=== PATIENT | male | born 1940 | race Caucasian/White ===

== ENCOUNTER → 2016-10-20 | Outpatient (CLI) | payer OTHER, BC ==
[~2016-10-20] VITALS: Ht 177.8 cm; Wt 83.9 kg
[~2016-10-20] MED LIST: ASPIR-LOW81 MG PO; ESCITALOPRAM OX10 MG PO; LISINOPRIL10 MG PO; LOVENOX40 MG/0.4 SC; METOPROLOL SUC100 MG PO; METOPROLOL SUCC50 MG PO; PLAVIX75 MG PO; PRAVASTATIN SOD40 MG PO; SENNA PLUS TAB1 EACH PO; TOPROL XL100 MG PO; TOPROL XL200 MG PO; ZESTORETIC 20-1 EAC1 PO
== END | disposition home or self-care (01) ==
LOC: AMB 07:52
PROC: 0D968ZX Drainage of Stomach, Via Natural or Artificial Opening Endoscopic, Diagnostic (ICD-10-PCS; principal; 2016-10-20)
PROC: BD42ZZZ Ultrasonography of Stomach (ICD-10-PCS; principal; 2016-10-20)
DX: C16.9 Malignant neoplasm of stomach, unspecified (principal); I10 Essential (primary) hypertension; Z86.73 Personal history of transient ischemic attack (TIA), and cerebral infarction without residual deficits; Z83.3 Family history of diabetes mellitus; Z82.49 Family history of ischemic heart disease and other diseases of the circulatory system; Z84.1 Family history of disorders of kidney and ureter; Z79.02 Long term (current) use of antithrombotics/antiplatelets
CPT/HCPCS: 88173; 88305; C1726; J3010

== ENCOUNTER → 2016-11-03 | Outpatient (CLI) | payer MEDICARE, BC | END | disposition home or self-care (01) | LOC: CDC 14:00 | DX: K31.89 Other diseases of stomach and duodenum (principal) | CPT/HCPCS: 93000; 99281; 99285 ==

== ENCOUNTER 2016-11-09 21:31 | Inpatient (IN) | payer OTHER, BC ==
[~2016-11-09] VITALS: Ht 177.8 cm; Wt 89.0 kg
[~2016-11-09 21:31] MED LIST changes: +LEXAPRO10 MG PO; +PRAVACHOL40 MG PO; +ZESTRIL10 MG PO
[2016-11-10 06:26] VITALS: BP 156/78
[2016-11-10 11:30] VITALS: BP 135/69
[2016-11-10 16:00] VITALS: BP 152/73
[2016-11-10 19:06] VITALS: BP 133/64
[2016-11-10 22:12] VITALS: BP 118/61
[2016-11-11 03:08] VITALS: BP 110/56
[2016-11-11 05:35] LABS: HEMATOCRIT 33.3 % (38.0-50.0); MCH 31.5 PG (29.0-34.0); MCHC 33.6 G/DL (30.0-36.0); MCV 93.5 FL (86-99); MEAN PLAT.VOLUME 9.8 uM^3 (9.0-12.4); PLATELET COUNT 159 K/uL (156-360); RBC DIS.WIDTH-CV 12.8 % (11.8-14.6); RBC DIS.WIDTH-SD 43.9 % (39-53); RED BLOOD COUNT 3.56 M/uL (4.00-5.50); WHITE BLOOD COUNT 12.8 K/uL (4.1-10.2)
[2016-11-11 06:13] LABS: ANION GAP 7 MEQ/L (2-14); CHLORIDE 103 MEQ/L (99-109); GFR ESTIMATE (CALCULATED) 57 mL/min/; GLUCOSE 144 mg/dL (70-99); POTASSIUM 4.5 MEQ/L (3.7-5.4); SAMPLE HEMOLYSIS CHECK 0; SAMPLE ICTERIC CHECK 0; SAMPLE LIPEMIA CHECK 0; SODIUM 137 MEQ/L (136-147); UREA NITROGEN (BUN) 23 mg/dL (9-23)
[2016-11-11 08:40] VITALS: BP 108/57
[2016-11-11 15:50] VITALS: BP 124/61
[2016-11-11 19:25] VITALS: BP 100/59
[2016-11-12 04:27] VITALS: BP 149/70
[2016-11-12 07:15] VITALS: BP 144/70
[2016-11-12 08:58] LABS: HEMATOCRIT 30.9 % (38.0-50.0); MCH 30.8 PG (29.0-34.0); MCHC 32.7 G/DL (30.0-36.0); MCV 94.2 FL (86-99); MEAN PLAT.VOLUME 10.1 uM^3 (9.0-12.4); PLATELET COUNT 113 K/uL (156-360); RBC DIS.WIDTH-CV 12.9 % (11.8-14.6); RBC DIS.WIDTH-SD 44.5 % (39-53); RED BLOOD COUNT 3.28 M/uL (4.00-5.50); WHITE BLOOD COUNT 10.2 K/uL (4.1-10.2)
[2016-11-12 09:34] LABS: ALKALINE PHOSPHATASE 45 IU/L (3-129); ANION GAP 4 MEQ/L (2-14); CHLORIDE 104 MEQ/L (99-109); GFR ESTIMATE (CALCULATED) > 59 mL/min/; GLUCOSE 135 mg/dL (70-99); POTASSIUM 4.3 MEQ/L (3.7-5.4); SAMPLE HEMOLYSIS CHECK 0; SAMPLE ICTERIC CHECK 0; SAMPLE LIPEMIA CHECK 0; SODIUM 138 MEQ/L (136-147); TOTAL BILIRUBIN 0.6 MG/DL (0.0-1.0); UREA NITROGEN (BUN) 22 mg/dL (9-23)
[2016-11-12 11:17] VITALS: BP 145/72
[2016-11-12 15:25] VITALS: BP 151/70
[2016-11-12 21:46] VITALS: BP 145/75
[2016-11-13] VITALS (7 sets, daily range): BP systolic 142–171; BP diastolic 71–88
[2016-11-14 04:16] VITALS: BP 158/72
[2016-11-14 07:50] VITALS: BP 188/86
[2016-11-14 10:45] LABS: EOSINOPHIL COUNT 0.2 K/uL (0-0.3); HEMATOCRIT 31.2 % (38.0-50.0); IMMATURE GRANULOCYTE (%) 0.4 % (0.0-0.7); INSTRUMENT ABS NEUTROPHIL CT 5.1 K/uL; LYMPHOCYTE COUNT 1.2 K/uL (1.0-2.8); MCV 91.2 FL (86-99); MEAN PLAT.VOLUME 10.1 uM^3 (9.0-12.4); MONOCYTE (%) 13.8 % (3-12); MONOCYTE COUNT 1.1 K/uL (0-0.8); NEUTROPHIL (%) 66.6 % (45-76); NEUTROPHIL COUNT 5.1 K/uL (1.8-6.4); PLATELET COUNT 143 K/uL (156-360); RBC DIS.WIDTH-CV 12.3 % (11.8-14.6); RBC DIS.WIDTH-SD 41.2 % (39-53); RED BLOOD COUNT 3.42 M/uL (4.00-5.50); WHITE BLOOD COUNT 7.6 K/uL (4.1-10.2)
[2016-11-14] MEDS ORDERED: HYDROCODON-ACE1 EAC7 PO (10:53)
[2016-11-14] MEDS ORDERED: NEXIUM20 MG PO (11:15)
[2016-11-14 11:22] LABS: ALKALINE PHOSPHATASE 44 IU/L (3-129); ANION GAP 8 MEQ/L (2-14); CHLORIDE 103 MEQ/L (99-109); GFR ESTIMATE (CALCULATED) > 59 mL/min/; GLUCOSE 103 mg/dL (70-99); MAGNESIUM 1.7 mg/dl (1.3-2.7); POTASSIUM 3.6 MEQ/L (3.7-5.4); SAMPLE HEMOLYSIS CHECK 0; SAMPLE ICTERIC CHECK 0; SAMPLE LIPEMIA CHECK 0; SODIUM 138 MEQ/L (136-147); UREA NITROGEN (BUN) 10 mg/dL (9-23)
[2016-11-14 11:24] LABS: TOTAL BILIRUBIN 0.8 MG/DL (0.0-1.0)
[2016-11-14 12:09] VITALS: BP 162/82
== END 2016-11-14 12:56 | disposition home or self-care (01) | DRG 983 ==
LOC: ENRESERV 21:31 → 2SOUTH 11-10 05:46 → 4EAST 11-10 05:46 → SDC 11-10 09:14 → ENRESERV 11-10 10:12 → CANRESERV 11-10 10:12 → 2SOUTH 11-10 10:34 → ENRESERV 11-10 10:35 → EDSTATUS 11-10 11:20 → 2SOUTH 11-10 11:21 → 4EAST 11-10 11:54 → 2SOUTH 11-10 14:35 → 4EAST 11-13 09:26 → ENRESERV 11-13 09:41 → 3EAST 11-13 11:18
PROVIDERS: Physician Assistant Surgical; Surgery
DX: C49.A2 Gastrointestinal stromal tumor of stomach (principal); K66.0 Peritoneal adhesions (postprocedural) (postinfection); I10 Essential (primary) hypertension; F32.9 Major depressive disorder, single episode, unspecified; R45.6 Violent behavior; I69.320 Aphasia following cerebral infarction; Z79.02 Long term (current) use of antithrombotics/antiplatelets; Z87.891 Personal history of nicotine dependence
CPT/HCPCS: 80048; 80053; 83735; 84100; 85025; 85027; 85730; 88304; 88307; 94799; C1753; J0131; J0330; J1100; J1170; J1630; J2060; J2405; J2710; J3010; J3480; J7040; J7120; S0028